=== PATIENT | female | born 1940 | race Caucasian/White ===

== ENCOUNTER → 2017-09-29 10:59 | Outpatient (CLI) | payer MEDICARE, OTHER, SELFPAY ==
[2017-09-29 12:18] LABS: Add Manual Diff / Slide Review NO; Basophils Percent Auto 0.6 % (0-2); Eosinophils Percent Auto 2.7 % (2-4); Hematocrit 37.2 % (36-46); Hemoglobin 12.4 g/dL (12.0-16.0); Lymphocytes Percent Auto 14.6 % (25-40); Mean Corpuscular HGB Conc 33.4 % (30-36); Mean Corpuscular Hemoglobin 30.8 PG (26-34); Mean Corpuscular Volume 92.3 fL (80-100); Monocytes Percent Auto 7.6 % (3-14); Neutrophils Absolute Auto 4600 /uL (3000-5900); Neutrophils Percent Auto 74.5 % (50-75); Platelet Count 215 X10^3/uL (150-400); Red Blood Cell Count 4.03 X10^6/uL (4.0-5.2); Red Cell Distribution Width 13.1 % (11.6-14.8); White Blood Cell Count 6.2 X10^3/uL (4.5-11.0)
[2017-09-29 12:58] LABS: Albumin 4.1 g/dL (3.5-5.0); Calcium 9.1 mg/dL (8.4-10.2); Estimated Glomerular Filt Rate 19.7 mL/min (>60); Glucose 122 mg/dL (80-110); HEMOLYSIS < 15 (0-50); Phosphorous 4.6 mg/dL (2.8-4.1); Potassium 5.2 mmol/L (3.4-5.1); Sodium 138 mmol/L (137-145)
== END ==
PROVIDERS: PCP Family Medicine; Visit Provider Internal Medicine
DX: N18.4 Chronic kidney disease, stage 4 (severe) (principal)
CPT/HCPCS: 36415; 80069; 85025

== ENCOUNTER → 2017-11-28 10:54 | Outpatient (CLI) | payer MEDICARE, OTHER, SELFPAY ==
[2017-11-28 13:17] LABS: Alanine Aminotransferase 17 IU/L (9-52); Albumin 4.4 g/dL (3.5-5.0); Albumin Globulin Ratio 1.6 (1.0-2.8); Alkaline Phosphatase 65 U/L (38-126); Aspartate Aminotransferase 13 IU/L (14-36); BUN Creatinine Ratio 17.8 (6-22); Bilirubin Total 0.4 mg/dL (0.2-1.3); Blood Urea Nitrogen 48 mg/dL (7-17); Calcium 9.5 mg/dL (8.4-10.2); Carbon Dioxide 20 mmol/L (22-32); Chloride 105 mmol/L (98-107); Estimated Glomerular Filt Rate 17.2 mL/min (>60); Globulin 2.8 g/dL (1.7-4.1); Glucose 143 mg/dL (80-110); HEMOLYSIS < 15 (0-50); Potassium 4.6 mmol/L (3.4-5.1); Sodium 141 mmol/L (137-145); Total Protein 7.2 g/dL (6.3-8.2); Uric Acid 6.9 mg/dL (2.5-6.2)
[2017-12-01 14:15] LABS: Parathyroid Hormone Int 230 pg/mL (14-64)
== END ==
PROVIDERS: PCP Family Medicine; Visit Provider Internal Medicine
DX: Z79.4 Long term (current) use of insulin (principal); N18.4 Chronic kidney disease, stage 4 (severe); E11.22 Type 2 diabetes mellitus with diabetic chronic kidney disease
CPT/HCPCS: 36415; 80053; 83970; 84550

== ENCOUNTER → 2017-12-26 11:21 | Outpatient (CLI) | payer MEDICARE, OTHER, SELFPAY ==
[2017-12-26 12:23] LABS: Add Manual Diff / Slide Review NO; Basophils Percent Auto 0.6 % (0-2); Eosinophils Percent Auto 2.2 % (2-4); Hematocrit 39.1 % (36-46); Hemoglobin 12.9 g/dL (12.0-16.0); Lymphocytes Percent Auto 12.3 % (25-40); Mean Corpuscular HGB Conc 32.9 % (30-36); Mean Corpuscular Hemoglobin 30.5 PG (26-34); Mean Corpuscular Volume 92.6 fL (80-100); Monocytes Percent Auto 5.8 % (3-14); Neutrophils Absolute Auto 5500 /uL (3000-5900); Neutrophils Percent Auto 79.1 % (50-75); Platelet Count 243 X10^3/uL (150-400); Red Blood Cell Count 4.22 X10^6/uL (4.0-5.2); Red Cell Distribution Width 12.6 % (11.6-14.8)
[2017-12-26 12:56] LABS: BUN Creatinine Ratio 18.5 (6-22); Blood Urea Nitrogen 48 mg/dL (7-17); Calcium 9.5 mg/dL (8.4-10.2); Carbon Dioxide 22 mmol/L (22-32); Chloride 105 mmol/L (98-107); Estimated Glomerular Filt Rate 17.9 mL/min (>60); Glucose 138 mg/dL (80-110); HEMOLYSIS < 15 (0-50); Phosphorous 4.8 mg/dL (2.8-4.1); Potassium 5.1 mmol/L (3.4-5.1); Sodium 140 mmol/L (137-145)
== END ==
PROVIDERS: PCP Family Medicine; Visit Provider Internal Medicine
DX: E11.22 Type 2 diabetes mellitus with diabetic chronic kidney disease (principal); N18.4 Chronic kidney disease, stage 4 (severe); Z79.4 Long term (current) use of insulin
CPT/HCPCS: 36415; 80048; 84100; 85025

== ENCOUNTER → 2018-02-27 10:58 | Outpatient (CLI) | payer MEDICARE, OTHER, SELFPAY ==
[2018-02-27 12:08] LABS: Add Manual Diff / Slide Review NO; Basophils Percent Auto 0.7 % (0-2); Eosinophils Percent Auto 3.3 % (2-4); Hematocrit 38.6 % (36-46); Hemoglobin 12.9 g/dL (12.0-16.0); Lymphocytes Percent Auto 15.3 % (25-40); Mean Corpuscular HGB Conc 33.3 % (30-36); Mean Corpuscular Hemoglobin 30.4 PG (26-34); Mean Corpuscular Volume 91.4 fL (80-100); Monocytes Percent Auto 5.9 % (3-14); Neutrophils Absolute Auto 4900 /uL (3000-5900); Neutrophils Percent Auto 74.8 % (50-75); Platelet Count 223 X10^3/uL (150-400); Red Blood Cell Count 4.23 X10^6/uL (4.0-5.2); Red Cell Distribution Width 13.2 % (11.6-14.8); White Blood Cell Count 6.6 X10^3/uL (4.5-11.0)
[2018-02-27 12:29] LABS: Blood Urea Nitrogen 54 mg/dL (7-17); Calcium 9.4 mg/dL (8.4-10.2); Carbon Dioxide 23 mmol/L (22-32); Chloride 108 mmol/L (98-107); Cholesterol 188 mg/dL (140-199); Estimated Glomerular Filt Rate 17.2 mL/min (>60); Glucose 128 mg/dL (80-110); HDL Cholesterol 46 mg/dL (40-60); HEMOLYSIS < 15 (0-50); LDL Cholesterol Calculated 128 mg/dL (<100); Phosphorous 4.4 mg/dL (2.8-4.1); Sodium 145 mmol/L (137-145); Triglycerides 69 mg/dL (35-150)
[2018-02-27 14:31] LABS: Vitamin D 25 Hydroxy (D3) 30.5 ng/mL (30.0-100.0)
[2018-03-02 15:02] LABS: Parathyroid Hormone Int 155 pg/mL (14-64)
== END ==
PROVIDERS: PCP Family Medicine; Visit Provider Internal Medicine
DX: E11.22 Type 2 diabetes mellitus with diabetic chronic kidney disease (principal); N18.4 Chronic kidney disease, stage 4 (severe); Z79.4 Long term (current) use of insulin
CPT/HCPCS: 36415; 80048; 80061; 82306; 83970; 84100; 85025

== ENCOUNTER → 2018-06-05 10:36 | Outpatient (CLI) | payer MEDICARE, OTHER, SELFPAY ==
[2018-06-05 11:09] LABS: Add Manual Diff / Slide Review NO; Basophils Absolute Auto 0 /uL (0-100); Basophils Percent Auto 0.6 % (0-2); Eosinophils Absolute Auto 200 /uL (0-450); Eosinophils Percent Auto 3.2 % (2-4); Hematocrit 38.4 % (36-46); Hemoglobin 12.9 g/dL (12.0-16.0); Lymphocytes Absolute Auto 900 /uL (1100-4500); Lymphocytes Percent Auto 15.4 % (25-40); Mean Corpuscular HGB Conc 33.5 % (30-36); Mean Corpuscular Hemoglobin 30.9 PG (26-34); Monocytes Absolute Auto 400 /uL (0-900); Monocytes Percent Auto 5.9 % (3-14); Neutrophils Absolute Auto 4500 /uL (1500-7000); Neutrophils Percent Auto 74.9 % (50-75); Platelet Count 247 X10^3/uL (150-400); Red Blood Cell Count 4.17 X10^6/uL (4.0-5.2)
[2018-06-05 11:37] LABS: BUN Creatinine Ratio 21.7 (6-22); Blood Urea Nitrogen 63 mg/dL (7-17); Calcium 9.6 mg/dL (8.4-10.2); Carbon Dioxide 22 mmol/L (22-32); Chloride 107 mmol/L (98-107); Estimated Glomerular Filt Rate 15.8 mL/min (>60); Glucose 128 mg/dL (80-110); HEMOLYSIS < 15 (0-50); Phosphorous 4.5 mg/dL (2.8-4.1); Sodium 140 mmol/L (137-145)
[2018-06-05 11:45] LABS: Potassium 5.5 mmol/L (3.4-5.1)
== END ==
PROVIDERS: Family Provider Family Medicine; PCP Family Medicine; Visit Provider Internal Medicine
DX: N18.4 Chronic kidney disease, stage 4 (severe) (principal)
CPT/HCPCS: 36415; 80048; 84100; 85025

== ENCOUNTER → 2018-07-10 11:36 | Outpatient (CLI) | payer MEDICARE, OTHER, SELFPAY ==
[2018-07-10 12:32] LABS: Albumin 4.4 g/dL (3.5-5.0); Blood Urea Nitrogen 57 mg/dL (7-17); Calcium 9.4 mg/dL (8.4-10.2); Carbon Dioxide 22 mmol/L (22-32); Chloride 108 mmol/L (98-107); Estimated Glomerular Filt Rate 15.2 mL/min (>60); Glucose 120 mg/dL (80-110); HEMOLYSIS < 15 (0-50); Phosphorous 5.1 mg/dL (2.8-4.1); Potassium 5.1 mmol/L (3.4-5.1); Sodium 141 mmol/L (137-145)
[2018-07-13 13:49] LABS: Parathyroid Hormone Int 331 pg/mL (14-64)
== END ==
PROVIDERS: Family Provider Family Medicine; PCP Family Medicine; Visit Provider Internal Medicine
DX: N18.4 Chronic kidney disease, stage 4 (severe) (principal)
CPT/HCPCS: 36415; 80069; 83970

== ENCOUNTER → 2018-09-30 11:29 | Outpatient (CLI) | payer MEDICARE, OTHER, SELFPAY ==
[2018-09-30 12:11] LABS: Add Manual Diff / Slide Review NO; Basophils Absolute Auto 100 /uL (0-100); Eosinophils Absolute Auto 200 /uL (0-450); Eosinophils Percent Auto 4.2 % (2-4); Hematocrit 38.3 % (36-46); Hemoglobin 12.4 g/dL (12.0-16.0); Lymphocytes Absolute Auto 800 /uL (1100-4500); Mean Corpuscular HGB Conc 32.4 % (30-36); Mean Corpuscular Hemoglobin 30.2 PG (26-34); Mean Corpuscular Volume 93.3 fL (80-100); Monocytes Absolute Auto 400 /uL (0-900); Monocytes Percent Auto 7.1 % (3-14); Neutrophils Absolute Auto 4000 /uL (1500-7000); Neutrophils Percent Auto 72.7 % (50-75); Platelet Count 229 X10^3/uL (150-400); Red Cell Distribution Width 13.1 % (11.6-14.8); White Blood Cell Count 5.6 X10^3/uL (4.5-11.0)
[2018-09-30 12:23] LABS: BUN Creatinine Ratio 24.1 (6-22); Blood Urea Nitrogen 65 mg/dL (7-17); Calcium 9.3 mg/dL (8.4-10.2); Carbon Dioxide 19 mmol/L (22-32); Chloride 107 mmol/L (98-107); Estimated Glomerular Filt Rate 17.2 mL/min (>60); Glucose 129 mg/dL (80-110); HEMOLYSIS < 15 (0-50); Phosphorous 5.1 mg/dL (2.8-4.1); Potassium 5.1 mmol/L (3.4-5.1); Sodium 138 mmol/L (137-145)
== END ==
PROVIDERS: Family Provider Family Medicine; PCP Family Medicine; Visit Provider Internal Medicine
DX: N18.4 Chronic kidney disease, stage 4 (severe) (principal)
CPT/HCPCS: 36415; 80048; 84100; 85025

== ENCOUNTER → 2019-02-01 11:57 | Outpatient (CLI) | payer MEDICARE, OTHER, SELFPAY ==
[2019-02-01 13:04] LABS: Add Manual Diff / Slide Review NO; Basophils Absolute Auto 0 /uL (0-100); Basophils Percent Auto 0.8 % (0-2); Eosinophils Absolute Auto 200 /uL (0-450); Eosinophils Percent Auto 2.7 % (2-4); Hematocrit 37.6 % (36-46); Hemoglobin 12.5 g/dL (12.0-16.0); Lymphocytes Absolute Auto 800 /uL (1100-4500); Lymphocytes Percent Auto 13.4 % (25-40); Mean Corpuscular HGB Conc 33.2 % (30-36); Mean Corpuscular Hemoglobin 31.1 PG (26-34); Mean Corpuscular Volume 93.7 fL (80-100); Monocytes Absolute Auto 400 /uL (0-900); Monocytes Percent Auto 6.9 % (3-14); Neutrophils Absolute Auto 4800 /uL (1500-7000); Neutrophils Percent Auto 76.2 % (50-75); Platelet Count 227 X10^3/uL (150-400); Red Blood Cell Count 4.02 X10^6/uL (4.0-5.2); White Blood Cell Count 6.3 X10^3/uL (4.5-11.0)
[2019-02-01 13:28] LABS: Alanine Aminotransferase 9 IU/L (9-52); Albumin 4.2 g/dL (3.5-5.0); Albumin Globulin Ratio 1.6 (1.0-2.8); Alkaline Phosphatase 71 U/L (38-126); Aspartate Aminotransferase 17 IU/L (14-36); BUN Creatinine Ratio 17.4 (6-22); Bilirubin Total 0.5 mg/dL (0.2-1.3); Blood Urea Nitrogen 54 mg/dL (7-17); Calcium 9.5 mg/dL (8.4-10.2); Carbon Dioxide 19 mmol/L (22-32); Chloride 108 mmol/L (98-107); Estimated Glomerular Filt Rate 14.6 mL/min (>60); Globulin 2.6 g/dL (1.7-4.1); Glucose 114 mg/dL (80-110); HEMOLYSIS < 15 (0-50); Phosphorous 4.4 mg/dL (2.8-4.1); Sodium 139 mmol/L (137-145); Total Protein 6.8 g/dL (6.3-8.2)
[2019-02-01 13:29] LABS: Potassium 5.4 mmol/L (3.4-5.1)
[2019-02-01 14:02] LABS: Ferritin 77.5 ng/mL (11.1-264)
[2019-02-01 15:13] LABS: Vitamin D 25 Hydroxy (D3) 25.7 ng/mL (30.0-100.0)
[2019-02-03 16:03] LABS: Parathyroid Hormone Int 82 pg/mL (14-64)
== END ==
PROVIDERS: Family Provider Family Medicine; PCP Family Medicine; Visit Provider Internal Medicine
DX: N18.4 Chronic kidney disease, stage 4 (severe) (principal)
CPT/HCPCS: 36415; 80053; 82306; 82728; 83970; 84100; 85025

== ENCOUNTER → 2019-04-18 11:20 | Outpatient (CLI) | payer MEDICARE, OTHER, SELFPAY ==
[2019-04-18 12:20] LABS: Add Manual Diff / Slide Review NO; Basophils Absolute Auto 0 /uL (0-100); Basophils Percent Auto 0.7 % (0-2); Eosinophils Absolute Auto 200 /uL (0-450); Eosinophils Percent Auto 3.7 % (2-4); Hemoglobin 12.8 g/dL (12.0-16.0); Lymphocytes Absolute Auto 1000 /uL (1100-4500); Lymphocytes Percent Auto 15.7 % (25-40); Mean Corpuscular HGB Conc 33.6 % (30-36); Mean Corpuscular Hemoglobin 31.2 PG (26-34); Mean Corpuscular Volume 92.8 fL (80-100); Monocytes Absolute Auto 500 /uL (0-900); Neutrophils Absolute Auto 4600 /uL (1500-7000); Neutrophils Percent Auto 71.9 % (50-75); Platelet Count 262 X10^3/uL (150-400); Red Blood Cell Count 4.09 X10^6/uL (4.0-5.2); Red Cell Distribution Width 13.2 % (11.6-14.8); White Blood Cell Count 6.4 X10^3/uL (4.5-11.0)
[2019-04-18 12:37] LABS: Hemoglobin A1C% w Est Avg Glu 6.4 % (4.0-6.0)
[2019-04-18 13:04] LABS: BUN Creatinine Ratio 21.1 (6-22); Blood Urea Nitrogen 74 mg/dL (7-17); Calcium 9.9 mg/dL (8.4-10.2); Carbon Dioxide 23 mmol/L (22-32); Chloride 108 mmol/L (98-107); Estimated Glomerular Filt Rate 12.7 mL/min (>60); Glucose 139 mg/dL (80-110); HEMOLYSIS < 15 (0-50); Phosphorous 4.9 mg/dL (2.8-4.1); Sodium 141 mmol/L (137-145)
[2019-04-18 13:30] LABS: Potassium 5.8 mmol/L (3.4-5.1)
== END ==
PROVIDERS: Family Provider Family Medicine; PCP Family Medicine; Visit Provider Internal Medicine
DX: E11.22 Type 2 diabetes mellitus with diabetic chronic kidney disease (principal); N18.4 Chronic kidney disease, stage 4 (severe); Z79.4 Long term (current) use of insulin
CPT/HCPCS: 36415; 80048; 83036; 84100; 85025

== ENCOUNTER → 2019-05-07 10:23 | Outpatient (CLI) | payer MEDICARE, OTHER, SELFPAY ==
[2019-05-07 11:57] LABS: Add Manual Diff / Slide Review NO; Basophils Absolute Auto 100 /uL (0-100); Basophils Percent Auto 0.8 % (0-2); Eosinophils Absolute Auto 300 /uL (0-450); Eosinophils Percent Auto 4.2 % (2-4); Hematocrit 33.2 % (36-46); Hemoglobin 11.2 g/dL (12.0-16.0); Lymphocytes Absolute Auto 900 /uL (1100-4500); Lymphocytes Percent Auto 14.3 % (25-40); Mean Corpuscular HGB Conc 33.6 % (30-36); Mean Corpuscular Hemoglobin 31.5 PG (26-34); Mean Corpuscular Volume 93.6 fL (80-100); Monocytes Absolute Auto 500 /uL (0-900); Monocytes Percent Auto 8.3 % (3-14); Neutrophils Absolute Auto 4400 /uL (1500-7000); Neutrophils Percent Auto 72.4 % (50-75); Platelet Count 198 X10^3/uL (150-400); Red Blood Cell Count 3.55 X10^6/uL (4.0-5.2); Red Cell Distribution Width 12.9 % (11.6-14.8); White Blood Cell Count 6.1 X10^3/uL (4.5-11.0)
[2019-05-07 12:01] LABS: BUN Creatinine Ratio 15.8 (6-22); Blood Urea Nitrogen 57 mg/dL (7-17); Calcium 9.3 mg/dL (8.4-10.2); Carbon Dioxide 23 mmol/L (22-32); Chloride 108 mmol/L (98-107); Estimated Glomerular Filt Rate 12.3 mL/min (>60); Glucose 136 mg/dL (80-110); HEMOLYSIS < 15 (0-50); Phosphorous 4.6 mg/dL (2.8-4.1); Potassium 4.6 mmol/L (3.4-5.1); Sodium 141 mmol/L (137-145)
[2019-05-07 12:37] LABS: Hemoglobin A1C% w Est Avg Glu 6.7 % (4.0-6.0)
== END ==
PROVIDERS: Family Provider Family Medicine; PCP Family Medicine; Visit Provider Internal Medicine
DX: N18.4 Chronic kidney disease, stage 4 (severe) (principal)
CPT/HCPCS: 36415; 80048; 83036; 84100; 85025

== ENCOUNTER → 2019-07-04 10:56 | Outpatient (CLI) | payer MEDICARE, SELFPAY ==
[2019-07-04 11:40] LABS: Add Manual Diff / Slide Review NO; Basophils Absolute Auto 100 /uL (0-100); Basophils Percent Auto 0.9 % (0-2); Eosinophils Absolute Auto 300 /uL (0-450); Eosinophils Percent Auto 4.9 % (2-4); Hematocrit 34.9 % (36-46); Hemoglobin 11.3 g/dL (12.0-16.0); Lymphocytes Absolute Auto 800 /uL (1100-4500); Lymphocytes Percent Auto 12.4 % (25-40); Mean Corpuscular HGB Conc 32.4 % (30-36); Mean Corpuscular Hemoglobin 30.6 PG (26-34); Mean Corpuscular Volume 94.6 fL (80-100); Monocytes Absolute Auto 400 /uL (0-900); Monocytes Percent Auto 7.1 % (3-14); Neutrophils Absolute Auto 4700 /uL (1500-7000); Neutrophils Percent Auto 74.7 % (50-75); Platelet Count 199 X10^3/uL (150-400); Red Blood Cell Count 3.69 X10^6/uL (4.0-5.2); Red Cell Distribution Width 12.8 % (11.6-14.8); White Blood Cell Count 6.3 X10^3/uL (4.5-11.0)
[2019-07-04 12:07] LABS: Alanine Aminotransferase 28 IU/L (<35); Albumin 4.4 g/dL (3.5-5.0); Albumin Globulin Ratio 1.6 (1.0-2.8); Alkaline Phosphatase 76 U/L (38-126); Aspartate Aminotransferase 22 IU/L (14-36); BUN Creatinine Ratio 16.5 (6-22); Bilirubin Total 0.4 mg/dL (0.2-1.3); Blood Urea Nitrogen 66 mg/dL (7-17); Calcium 9.3 mg/dL (8.4-10.2); Carbon Dioxide 21 mmol/L (22-32); Chloride 109 mmol/L (98-107); Estimated Glomerular Filt Rate 10.9 mL/min (>60); Globulin 2.8 g/dL (1.7-4.1); Glucose 133 mg/dL (80-110); HEMOLYSIS < 15 (0-50); Phosphorous 5.3 mg/dL (2.8-4.1); Sodium 143 mmol/L (137-145); Total Protein 7.2 g/dL (6.3-8.2)
[2019-07-04 12:09] LABS: Potassium 5.6 mmol/L (3.4-5.1)
== END ==
PROVIDERS: Family Provider Family Medicine; PCP Family Medicine; Referring Provider Internal Medicine; Visit Provider Internal Medicine
DX: N18.4 Chronic kidney disease, stage 4 (severe) (principal)
CPT/HCPCS: 36415; 80053; 84100; 85025

== ENCOUNTER → 2020-10-20 11:01 | Outpatient (CLI) | payer MEDICARE, BC, SELFPAY ==
[2020-10-20 11:43] LABS: Add Manual Diff / Slide Review NO; Basophils Absolute Auto 0 /uL (0-100); Basophils Percent Auto 0.6 % (0-2); Eosinophils Absolute Auto 200 /uL (0-450); Eosinophils Percent Auto 3.1 % (2-4); Hematocrit 34.2 % (36-46); Hemoglobin 11.3 g/dL (12.0-16.0); Lymphocytes Absolute Auto 500 /uL (1100-4500); Mean Corpuscular Hemoglobin 30.6 PG (26-34); Mean Corpuscular Volume 92.8 fL (80-100); Monocytes Absolute Auto 500 /uL (0-900); Neutrophils Absolute Auto 5500 /uL (1500-7000); Neutrophils Percent Auto 81.3 % (50-75); Platelet Count 205 X10^3/uL (150-400); Red Blood Cell Count 3.69 X10^6/uL (4.0-5.2); Red Cell Distribution Width 13.4 % (11.6-14.8); White Blood Cell Count 6.8 X10^3/uL (4.5-11.0)
[2020-10-20 12:08] LABS: HEMOLYSIS < 15 (0-50); Iron 50 ug/dL (37-170)
[2020-10-20 12:10] LABS: Alanine Aminotransferase 12 IU/L (<35); Albumin 4.3 g/dL (3.5-5.0); Albumin Globulin Ratio 1.7 (1.0-2.8); Alkaline Phosphatase 71 U/L (38-126); Aspartate Aminotransferase 15 IU/L (14-36); Bilirubin Total 0.4 mg/dL (0.2-1.3); Blood Urea Nitrogen 70 mg/dL (7-17); Calcium 9.5 mg/dL (8.4-10.2); Carbon Dioxide 17 mmol/L (22-32); Chloride 105 mmol/L (98-107); Estimated Glomerular Filt Rate 9.8 mL/min (>60); Globulin 2.6 g/dL (1.7-4.1); Glucose 130 mg/dL (80-110); HEMOLYSIS < 15 (0-50); Phosphorous 4.6 mg/dL (2.8-4.1); Sodium 134 mmol/L (137-145); Total Protein 6.9 g/dL (6.3-8.2)
[2020-10-20 12:13] LABS: Potassium 5.9 mmol/L (3.4-5.1)
[2020-10-20 12:20] LABS: Percent Iron Saturation 16 % (15-50); Total Iron Binding Capacity 318 ug/dL (265-497); Transferrin 236 mg/dL (206-381)
[2020-10-20 12:25] LABS: Vitamin D 25 Hydroxy (D3) 29.8 ng/mL (30.0-100.0)
[2020-10-20 12:43] LABS: Ferritin 69 ng/mL (11-264)
[2020-10-21 10:48] LABS: Parathyroid Hormone Int 563 pg/mL (15-65)
== END ==
PROVIDERS: Family Provider Family Medicine; PCP Family Medicine; Referring Provider Internal Medicine; Visit Provider Internal Medicine
DX: N18.5 Chronic kidney disease, stage 5 (principal)
CPT/HCPCS: 36415; 80053; 82306; 82728; 83540; 83550; 83970; 84100; 85025

== ENCOUNTER → 2020-12-29 11:17 | Outpatient (CLI) | payer MEDICARE, BC, SELFPAY ==
[2020-12-29 13:04] LABS: Add Manual Diff / Slide Review NO; Basophils Absolute Auto 100 /uL (0-100); Basophils Percent Auto 0.9 % (0-2); Eosinophils Absolute Auto 200 /uL (0-450); Eosinophils Percent Auto 3.5 % (2-4); Hematocrit 35.2 % (36-46); Hemoglobin 11.7 g/dL (12.0-16.0); Lymphocytes Absolute Auto 600 /uL (1100-4500); Lymphocytes Percent Auto 10.3 % (25-40); Mean Corpuscular HGB Conc 33.2 % (30-36); Mean Corpuscular Hemoglobin 30.6 PG (26-34); Mean Corpuscular Volume 92.1 fL (80-100); Monocytes Absolute Auto 400 /uL (0-900); Monocytes Percent Auto 6.8 % (3-14); Neutrophils Absolute Auto 4500 /uL (1500-7000); Neutrophils Percent Auto 78.5 % (50-75); Platelet Count 189 X10^3/uL (150-400); Red Blood Cell Count 3.83 X10^6/uL (4.0-5.2); Red Cell Distribution Width 13.3 % (11.6-14.8); White Blood Cell Count 5.8 X10^3/uL (4.5-11.0)
[2020-12-29 13:48] LABS: Albumin 4.4 g/dL (3.5-5.0); BUN Creatinine Ratio 13.5 (6-22); Blood Urea Nitrogen 70 mg/dL (7-17); Carbon Dioxide 19 mmol/L (22-32); Chloride 110 mmol/L (98-107); Glucose 112 mg/dL (80-110); HEMOLYSIS 19 (0-50); Phosphorous 6.1 mg/dL (2.8-4.1); Potassium 4.9 mmol/L (3.4-5.1); Sodium 141 mmol/L (137-145)
[2021-01-01 08:53] LABS: Parathyroid Hormone Int 671 pg/mL (15-65)
== END ==
PROVIDERS: Family Provider Family Medicine; PCP Family Medicine; Referring Provider Internal Medicine Nephrology; Visit Provider Internal Medicine Nephrology
DX: N18.5 Chronic kidney disease, stage 5 (principal)
CPT/HCPCS: 36415; 80069; 83970; 85025

== ENCOUNTER → 2021-01-17 11:45 | Outpatient (CLI) | payer MEDICARE, BC, SELFPAY ==
[2021-01-17 13:18] LABS: Albumin 4.4 g/dL (3.5-5.0); BUN Creatinine Ratio 12.6 (6-22); Blood Urea Nitrogen 61 mg/dL (7-17); Calcium 8.9 mg/dL (8.4-10.2); Carbon Dioxide 19 mmol/L (22-32); Chloride 109 mmol/L (98-107); Estimated Glomerular Filt Rate 8.7 mL/min (>60); Glucose 108 mg/dL (80-110); HEMOLYSIS < 15 (0-50); Phosphorous 5.3 mg/dL (2.8-4.1); Potassium 5.2 mmol/L (3.4-5.1); Sodium 139 mmol/L (137-145)
[2021-01-17 15:04] LABS: Hepatitis B Surface Antigen NEGATIVE s/c (NEGATIVE)
[2021-01-17 15:18] LABS: Hep C Virus Ab w/Reflex Quant NEGATIVE s/c (NEGATIVE)
[2021-01-18 03:28] LABS: Hepatitis B Surf AB Quant <3.1 mIU/mL (Immunity>9.9)
== END ==
PROVIDERS: Family Provider Family Medicine; PCP Family Medicine; Referring Provider Internal Medicine Nephrology; Visit Provider Internal Medicine Nephrology
DX: N18.5 Chronic kidney disease, stage 5 (principal); Z11.59 Encounter for screening for other viral diseases
CPT/HCPCS: 36415; 80069; 86706; 86803; 87340

== ENCOUNTER → 2021-02-09 11:26 | Outpatient (CLI) | payer MEDICARE, BC, SELFPAY ==
[2021-02-09 13:26] LABS: Albumin 4.3 g/dL (3.5-5.0); BUN Creatinine Ratio 14.2 (6-22); Blood Urea Nitrogen 67 mg/dL (7-17); Calcium 8.9 mg/dL (8.4-10.2); Carbon Dioxide 20 mmol/L (22-32); Chloride 110 mmol/L (98-107); Estimated Glomerular Filt Rate 8.9 mL/min (>60); Glucose 96 mg/dL (80-110); HEMOLYSIS 17 (0-50); Phosphorous 5.5 mg/dL (2.8-4.1); Sodium 141 mmol/L (137-145)
[2021-02-09 13:34] LABS: Potassium 5.4 mmol/L (3.4-5.1)
== END ==
PROVIDERS: Family Provider Family Medicine; PCP Family Medicine; Referring Provider Internal Medicine Nephrology; Visit Provider Internal Medicine Nephrology
DX: N18.5 Chronic kidney disease, stage 5 (principal)
CPT/HCPCS: 36415; 80069

== ENCOUNTER → 2021-03-25 11:07 | Outpatient (CLI) | payer MEDICARE, BC, SELFPAY ==
[2021-03-25 12:32] LABS: Add Manual Diff / Slide Review NO; Basophils Absolute Auto 0 /uL (0-100); Basophils Percent Auto 0.7 % (0-2); Eosinophils Absolute Auto 200 /uL (0-450); Eosinophils Percent Auto 3.7 % (2-4); Hematocrit 30.8 % (36-46); Hemoglobin 10.1 g/dL (12.0-16.0); Lymphocytes Absolute Auto 500 /uL (1100-4500); Lymphocytes Percent Auto 8.7 % (25-40); Mean Corpuscular HGB Conc 32.8 % (30-36); Mean Corpuscular Hemoglobin 30.5 PG (26-34); Mean Corpuscular Volume 93.1 fL (80-100); Monocytes Absolute Auto 400 /uL (0-900); Monocytes Percent Auto 7.6 % (3-14); Neutrophils Absolute Auto 4700 /uL (1500-7000); Neutrophils Percent Auto 79.3 % (50-75); Platelet Count 166 X10^3/uL (150-400); Red Blood Cell Count 3.31 X10^6/uL (4.0-5.2); Red Cell Distribution Width 14.3 % (11.6-14.8); White Blood Cell Count 5.9 X10^3/uL (4.5-11.0)
[2021-03-25 12:42] LABS: Albumin 4.3 g/dL (3.5-5.0); BUN Creatinine Ratio 10.8 (6-22); Blood Urea Nitrogen 58 mg/dL (7-17); Calcium 9.2 mg/dL (8.4-10.2); Carbon Dioxide 21 mmol/L (22-32); Chloride 106 mmol/L (98-107); Estimated Glomerular Filt Rate 7.7 mL/min (>60); Glucose 101 mg/dL (80-110); HEMOLYSIS < 15 (0-50); Phosphorous 4.8 mg/dL (2.8-4.1); Sodium 138 mmol/L (137-145)
[2021-03-26 08:10] LABS: Parathyroid Hormone Int 540 pg/mL (15-65)
== END ==
PROVIDERS: Family Provider Family Medicine; PCP Family Medicine; Referring Provider Internal Medicine Nephrology; Visit Provider Internal Medicine Nephrology
DX: N18.5 Chronic kidney disease, stage 5 (principal)
CPT/HCPCS: 36415; 80069; 83970; 85025

== ENCOUNTER → 2021-04-13 11:18 | Outpatient (CLI) | payer MEDICARE, BC, SELFPAY ==
[2021-04-13 13:47] LABS: Add Manual Diff / Slide Review NO; Basophils Absolute Auto 0 /uL (0-100); Basophils Percent Auto 0.6 % (0-2); Eosinophils Absolute Auto 300 /uL (0-450); Eosinophils Percent Auto 5.4 % (2-4); Hematocrit 31.6 % (36-46); Hemoglobin 10.5 g/dL (12.0-16.0); Lymphocytes Absolute Auto 400 /uL (1100-4500); Lymphocytes Percent Auto 9.1 % (25-40); Mean Corpuscular HGB Conc 33.2 % (30-36); Mean Corpuscular Hemoglobin 31.1 PG (26-34); Mean Corpuscular Volume 93.8 fL (80-100); Monocytes Absolute Auto 400 /uL (0-900); Monocytes Percent Auto 7.4 % (3-14); Neutrophils Absolute Auto 3800 /uL (1500-7000); Neutrophils Percent Auto 77.5 % (50-75); Platelet Count 171 X10^3/uL (150-400); Red Blood Cell Count 3.37 X10^6/uL (4.0-5.2); Red Cell Distribution Width 13.8 % (11.6-14.8); White Blood Cell Count 4.9 X10^3/uL (4.5-11.0)
[2021-04-13 14:03] LABS: HEMOLYSIS < 15 (0-50); Iron 55 ug/dL (37-170)
[2021-04-13 14:05] LABS: Albumin 4.2 g/dL (3.5-5.0); Blood Urea Nitrogen 57 mg/dL (7-17); Carbon Dioxide 19 mmol/L (22-32); Chloride 106 mmol/L (98-107); Estimated Glomerular Filt Rate 8.1 mL/min (>60); Glucose 103 mg/dL (80-110); HEMOLYSIS < 15 (0-50); Phosphorous 5.3 mg/dL (2.8-4.1); Sodium 139 mmol/L (137-145)
[2021-04-13 14:16] LABS: Percent Iron Saturation 18 % (15-50); Total Iron Binding Capacity 314 ug/dL (265-497); Transferrin 220 mg/dL (206-381)
[2021-04-13 14:40] LABS: Ferritin 57 ng/mL (11-264)
[2021-04-14 12:35] LABS: Parathyroid Hormone Int 708 pg/mL (15-65)
[2021-04-15 05:59] LABS: Hepatitis B Surf AB Quant <3.1 mIU/mL (Immunity>9.9)
[2021-04-15 17:49] LABS: Hepatitis B Surface Antigen NEGATIVE s/c (NEGATIVE)
== END ==
PROVIDERS: Family Provider Family Medicine; PCP Family Medicine; Referring Provider Internal Medicine Nephrology; Visit Provider Internal Medicine Nephrology
DX: N18.5 Chronic kidney disease, stage 5 (principal); Z11.59 Encounter for screening for other viral diseases
CPT/HCPCS: 36415; 80069; 82728; 83540; 83550; 83970; 85025; 86706; 87340

== ENCOUNTER → 2021-06-01 11:27 | Outpatient (CLI) | payer MEDICARE, OTHER, SELFPAY ==
[2021-06-01 12:45] LABS: Add Manual Diff / Slide Review NO; Basophils Absolute Auto 0 /uL (0-100); Basophils Percent Auto 0.9 % (0-2); Eosinophils Absolute Auto 200 /uL (0-450); Eosinophils Percent Auto 3.4 % (2-4); Hematocrit 34.5 % (36-46); Hemoglobin 11.3 g/dL (12.0-16.0); Lymphocytes Absolute Auto 400 /uL (1100-4500); Lymphocytes Percent Auto 7.3 % (25-40); Mean Corpuscular HGB Conc 32.8 % (30-36); Mean Corpuscular Hemoglobin 30.7 PG (26-34); Mean Corpuscular Volume 93.4 fL (80-100); Monocytes Absolute Auto 300 /uL (0-900); Neutrophils Absolute Auto 4400 /uL (1500-7000); Neutrophils Percent Auto 83.4 % (50-75); Platelet Count 156 X10^3/uL (150-400); Red Cell Distribution Width 14.2 % (11.6-14.8); White Blood Cell Count 5.3 X10^3/uL (4.5-11.0)
[2021-06-01 13:11] LABS: Albumin 4.5 g/dL (3.5-5.0); BUN Creatinine Ratio 9.4 (6-22); Blood Urea Nitrogen 59 mg/dL (7-17); Calcium 9.3 mg/dL (8.4-10.2); Carbon Dioxide 20 mmol/L (22-32); Chloride 110 mmol/L (98-107); Estimated Glomerular Filt Rate 6.4 mL/min (>60); Glucose 122 mg/dL (80-110); HEMOLYSIS < 15 (0-50); Phosphorous 5.1 mg/dL (2.8-4.1); Potassium 5.3 mmol/L (3.4-5.1); Sodium 139 mmol/L (137-145)
[2021-06-02 07:19] LABS: Hepatitis B Surf AB Quant <3.1 mIU/mL (Immunity>9.9)
[2021-06-02 10:28] LABS: Parathyroid Hormone Int 709 pg/mL (15-65)
[2021-06-03 16:27] LABS: Hepatitis B Surface Antigen NEGATIVE s/c (NEGATIVE)
[2021-06-08 08:10] LABS: Hepatitis B Core Antibody Negative (Negative)
== END ==
PROVIDERS: Family Provider Family Medicine; PCP Family Medicine; Referring Provider Internal Medicine Nephrology; Visit Provider Internal Medicine Nephrology
DX: N18.5 Chronic kidney disease, stage 5 (principal); Z11.59 Encounter for screening for other viral diseases
CPT/HCPCS: 36415; 80069; 83970; 85025; 86704; 86706; 87340